=== PATIENT | female | born 1955 | race Caucasian/White ===

== ENCOUNTER 2016-12-15 20:39 | Emergency (ER) | payer BC ==
[2016-12-15 20:58] VITALS: BP 108/69
--- NOTE | 2016-12-15 21:37 | UC ---
Back Pain HPI - HPI Summary HPI Summary: 61 y/o female presents to the urgent care accompany by . Pt c/o of lower back pain since gardening for the past 2 weeks which has not resolved. Pt also states she first heard a cracking sound and her pain has been on and off since then. She has been taking advil to improve her symptoms which has helped. Her pain radiates to the left extremity w/o any numbeness or tingling. Pt denies any urinary symptoms or saddle paresthesias, SOB, chest pain, N/V. She has not seen a PCP in last 23 years. - History of Current Complaint Chief Complaint: UCBackPain Stated Complaint: BACK INJURY Time Seen by Provider: 12/15/16 20:59 ?: No Onset/Duration: Sudden Onset, Lasting Weeks, Still Present Timing: Intermittent Severity Initially: Moderate Severity Currently: Moderate Pain Intensity: 6 Pain Scale Used: 0-10 Numeric Character: Spasmodic, Stiffness Aggravating: Movement, Bending Alleviating: Rest Associated Signs And Symptoms: Positive: Pain with Weight Bearing - Allergies/Home Medications Allergies/Adverse Reactions: Allergies Allergy/AdvReac Type Severity Reaction Status Date / Time No Known Allergies Allergy Verified 12/15/16 20:58 PMH/Surg Hx/FS Hx/Imm Hx Cardiovascular History Of: Reports: Cardiac Disorders - heart murmur - Surgical History Surgical History: Yes - cholecystectomy 23 years ago - Family History Known Family History: Positive: Cardiac Disease, Diabetes - Social History Alcohol Use: Occasionally Substance Use Type: None Smoking Status (MU): Never Smoked Tobacco Review of Systems Skin: Negative Eyes: Negative ENT: Negative Respiratory: Negative Cardiovascular: Negative Gastrointestinal: Negative Genitourinary: Negative Motor: Negative Musculoskeletal: Other: - lower back pain Neurological: Negative All Other Systems Reviewed And Are Negative: Yes Physical Exam Triage Information Reviewed: Yes Appearance: Well-Appearing, No Pain Distress, Well-Nourished, Thin Vital Signs: Initial Vital Signs Temp 98.7 F 12/15/16 20:52 Pulse 73 12/15/16 20:52 Resp 16 12/15/16 20:52 BP 108/69 12/15/16 20:52 Pulse Ox 98 12/15/16 20:52 Vital Signs Reviewed: Yes Eye Exam: Normal ENT Exam: Normal ENT: Positive: Normal ENT inspection, Hearing grossly normal, Pharynx normal. Negative: Nasal drainage, Tonsillar swelling Neck: Positive: Supple, Nontender Respiratory: Positive: Chest non-tender, Lungs clear, Normal breath sounds, No respiratory distress, No accessory muscle use Cardiovascular: Positive: RRR, No Murmur, Pulses Normal Abdomen Description: Positive: Nontender, No Organomegaly, Soft. Negative: CVA Tenderness (R), CVA Tenderness (L) Bowel Sounds: Positive: Present Musculoskeletal: Positive: Strength Intact, ROM Limited @ - decrease ROM of back on flexion and extension. Positive paraspinal muscle spasm on the left side. Normal leg raise test. mild tenderness on deep palpation over L4-L5 and S1. normal reflexes. positive sensation over the lower extremities. Neurological Exam: Normal Psychological Exam: Normal Skin Exam: Normal Diagnostics - Radiology lumbar x-ray Xray Interpretation: Positive (See Comments) Back Pain Course/Dx - Course Course Of Treatment: Lower back pain: lower back x-ray ordered: - Differential Dx/Diagnosis Differential Diagnosis/HQI/PQRI: Arthritis, Cauda Equina Syndrome, Strain Provider Diagnoses: lower back pain, muscle spasm Discharge - Discharge Plan Condition: Stable Disposition: HOME Prescriptions: Cyclobenzaprine TAB* [Flexeril 10 MG TAB*] 10 mg PO TID #15 tab Ibuprofen TAB* [Motrin TAB* 800 MG] 800 mg PO Q6H #30 tab Patient Education Materials: Acute Low Back Pain (ED) Referrals: [facility] PHYSICIAN REFERRAL [Outside] Additional Instructions: Please take medications as indicated to relieve symptoms. Referral given for physical therapy for evaluation treatment. Please call [facility] physician referral to make an appointment with PCP for further evaluation and work up. Avoid heavy weight lifting.
--- NOTE | 2016-12-15 22:04 | RAD ---
INDICATION: 3 weeks of low back pain COMPARISON: None. TECHNIQUE: 5 views of the lumbar spine were obtained. FINDINGS: The vertebral bodies are appropriately aligned. Mild degenerative changes include loss of intervertebral disc height. There is age indeterminant compression deformity involving the superior endplate of the L5 vertebral body. There is no retropulsion of fragments. IMPRESSION: Age indeterminant superior endplate compression deformity of the L5 vertebral body.
== END 2016-12-15 22:15 | disposition home or self-care (01) ==
LOC: UCEAST 20:39
DX: M54.5 Low back pain (principal); M62.838 Other muscle spasm; R01.1 Cardiac murmur, unspecified
CPT/HCPCS: 72110; 99202; G0463